=== PATIENT | female | born 1995 ===

== ENCOUNTER 2019-05-11 06:14 | Inpatient (IN) | payer OTHER ==
[~2019-05-11] VITALS: Ht 160 cm; Wt 88.6 kg
[2019-05-13] VITALS (62 sets, daily range): BP systolic 96–1207; BP diastolic 53–88; PULSE 62–150; TEMP 97.6–98.9
--- NOTE | 2019-05-13 07:05 | NUR ---
Patient ambulatory to LR5, changed into gown, FHR/TOCO monitors placed and explained. Patient denies any regular contractions, leaking of fluid, or vaginal bleeding. Plan of care discussed and oriented to room. 0725: IV started in left forearm, blood obtained and to lab, LR infusing. Assessment and consents gone over and signed/ packet given.
[2019-05-13] MEDS ORDERED: PRENATAL MVI (07:41)
[2019-05-13] MEDS ORDERED: TUMS500 MG (07:42)
--- NOTE | 2019-05-13 08:15 | NUR ---
Patient sitting on birthing ball and FHR monitor tracing maternal intermittently. 0900: Dr. Miller at bedside and assessing patient and FHR strip. SVE-2/75/-2 and AROM at this time and clear fluid noted. Plan of care discussed.
[2019-05-13 08:34] LABS: BASO % 0.1 % (0.0-2.0); EOS # 0.1 (0.0-0.7); EOS % 0.8 % (0-4.0); GRAN # 7.1 (1.4-6.5); GRAN % 68.7 % (42.2-75.2); HEMATOCRIT 37.4 % (37.0-47.0); HEMOGLOBIN 12.5 g/dl (12.5-16.0); LYMPH # 2.3 (1.2-3.4); LYMPH % 21.9 % (20.0-51.0); MEAN CELL VOLUME 84 fl (80.0-100.0); MEAN CORPUSCULAR HEMOGLOBIN 28 pg (27.0-31.0); MEAN CORPUSCULAR HGB CONC 33 g/dl (33.0-37.0); MONO # 0.8 (0.1-0.6); MONO % 7.9 % (1.7-9.3); PLATELET COUNT 194 K/mm3 (130-400); RED BLOOD COUNT 4.46 M/mm3 (4.10-5.30); REDCELL DISTRIBUTION WIDTH-CV 13.3 % (11.5-14.5)
[2019-05-13] MEDS ORDERED: MOTRIN 800800 MG/TAB PO (09:32)
[2019-05-13] MEDS ORDERED: PERCOCET 325 MG1 TA2 PO (09:32)
--- NOTE | 2019-05-13 15:30 | NUR ---
Patient more uncomfortable with contractions and bouncing on birthing ball. FHR monitor tracing maternal heart rate intermittently,
--- NOTE | 2019-05-13 16:22 | NUR ---
Patient requesting epidural and T.Kittanning BOTTOM STOP ATTACHER at bedside. 1632: T. Jenae BOTTOM STOP ATTACHER at bedside and patient sitting at edge of bed. Difficulty tracing FHR due to maternal position. 1645: Test dose given and patient tolerates well. 1650: Patient repositioned and saftey precautions/plan of care discussed. 1515: Brandt catheter placed and patient tolerates well. Patient turned right lateral with left leg resting in stirrup.
--- NOTE | 2019-05-13 22:00 | NUR ---
2200- DR. CADET AT BEDSIDE. PATIENT COMPLETE AT THIS TIME. PATINET FEELING STRONG PRESSURE AND URGE TO PUCH. 221- PATIENT IN STIRRUPS AND INSTRUCTED ON PUSHING. PROVIDER REMAINS AT BEDSIDE. 222- NURSERY NURSE AT BEDSIDE. 2233- SPONTANEOUS DELIVERY OF VIABLE FEMALE 2235- SPONTANEOUS DELIVERY OF INTACT PLACENTA, PITOCIN RUNNING AT 333CC/HR PER ORDER. 2236- SECOND DEGREE MIDEOLATERAL EPISIOTOMY REPAIRED AT THIS TIME PER DR. CRUZ. NO COMPLICATIONS. FUNDUS F/U/SCANT. EBL 300CC. APGARS 8,9,9. INFANT REMAINS SKIN TO SKIN WITH PATIENT.
[2019-05-14] VITALS (9 sets, daily range): BP systolic 107–127; BP diastolic 59–82; PULSE 86–115; TEMP 97.7–98.6
[2019-05-15 08:40] VITALS: BP 109/74; PULSE 92; TEMP 98.4
== END 2019-05-15 11:30 | disposition home or self-care (01) | DRG 807 ==
LOC: EDSTATUS 06:14 → LDRO 19:02 → LDR 05-13 06:14 → OB 05-13 07:01
PROVIDERS: ADMIT Obstetrics & Gynecology
PROC: 10E0XZZ Delivery of Products of Conception, External Approach (ICD-10-PCS; principal; 2019-05-13)
PROC: 10907ZC Drainage of Amniotic Fluid, Therapeutic from Products of Conception, Via Natural or Artificial Opening (ICD-10-PCS; 2019-05-13)
PROC: 0W8NXZZ Division of Female Perineum, External Approach (ICD-10-PCS; 2019-05-13)
PROC: 3E033VJ Introduction of Other Hormone into Peripheral Vein, Percutaneous Approach (ICD-10-PCS; 2019-05-13)
DX: O69.1XX0 Labor and delivery complicated by cord around neck, with compression, not applicable or unspecified (principal); Z37.0 Single live birth; Z3A.39 39 weeks gestation of pregnancy
CPT/HCPCS: J2590; J7120